=== PATIENT | female | born 1980 | race African-American/Black ===

== ENCOUNTER 2018-11-03 20:24 | Emergency (ER) | payer BC, MEDICAID, OTHER ==
[2018-11-03] MEDS ORDERED: Sodium Chloride 0.9% 10 ML Syringe FLUSH PRN (20:43)
--- NOTE | 2018-11-03 20:47 | EDM.PDOC ---
ED HPI GENERAL MEDICAL PROBLEM - General Stated Complaint: BLEEDING Time Seen by Provider: 11/03/18 20:47 Source of Information: Reports: Patient History Limitations: Reports: No Limitations - History of Present Illness INITIAL COMMENTS - FREE TEXT/NARRATIVE: PT presents c/o lower abd cramping and vaginal bleeding that started est 1900 tonight. Pt [id number] states she took a home test last month and was positive, [facility] on 09/27/18. Pt denies any sharp or tearing pain, mild cramping with vaginal bleeding, did note some clots were passed. ED ROS GENERAL - Review of Systems Review Of Systems: See Below Constitutional: Reports: No Symptoms HEENT: Reports: No Symptoms Respiratory: Reports: No Symptoms Cardiovascular: Reports: No Symptoms Endocrine: Reports: No Symptoms GI/Abdominal: Reports: Other (lower abd cramping. ) : Reports: Other (vaginal bleeding ) Skin: Reports: No Symptoms Neurological: Reports: No Symptoms Psychiatric: Reports: No Symptoms ED EXAM, GENERAL - Physical Exam Exam: See Below Exam Limited By: No Limitations General Appearance: Alert, WD/WN, No Apparent Distress Ears: Normal External Exam, Normal Canal Nose: Normal Inspection Throat/Mouth: Normal Inspection Head: Atraumatic, Normocephalic Neck: Normal Inspection Respiratory/Chest: No Respiratory Distress, Lungs Clear, Normal Breath Sounds, No Accessory Muscle Use, Chest Non-Tender Cardiovascular: Normal Peripheral Pulses GI/Abdominal: Normal Bowel Sounds, Soft, Tender, Other (lower abd tender / cramping ) Back Exam: Normal Inspection Extremities: Normal Inspection Neurological: Alert, Oriented Psychiatric: Normal Affect, Normal Mood Skin Exam: Warm, Dry, Intact Course - Orders/Labs/Meds Orders: Active Orders 24 hr Category Date Time Status HCG QUALITATIVE,URINE [URCHEM] Stat Lab 11/03/18 21:51 Ordered UA RFX TJ AND CULT IF INDIC [URIN] Stat Lab 11/03/18 21:51 Received Sodium Chloride 0.9% [Saline Flush] Med 11/03/18 20:43 Active 10 ml FLUSH ASDIRECTED PRN Peripheral IV Insertion Adult [OM.PC] Routine Oth 11/03/18 20:43 Ordered Medication Orders Sodium Chloride (Saline Flush) 10 ml FLUSH ASDIRECTED PRN PRN Reason: Keep Vein Open Labs: Laboratory Tests 11/03/18 11/03/18 Range/Units 20:56 20:56 WBC 5.4 (4.0-10.0) x10^3/uL RBC 4.62 (4.00-5.50) x10^6/uL Hgb 11.6 L (12.0-16.0) g/dL Hct 34.7 (33.0-47.0) % MCV 75.1 L (78.0-93.0) fL MCH 25.1 L (26.0-32.0) pg MCHC 33.4 (32.0-36.0) g/dL RDW Coeff of [place]iley 15.1 H (10.0-15.0) % Plt Count 217 (130-400) x10^3/uL Neut % (Auto) 62.2 (50.0-80.0) % Lymph % (Auto) 25.7 (25.0-50.0) % [place] % (Auto) 10.1 (2.0-11.0) % Eos % (Auto) 1.8 (0.0-4.0) % Baso % (Auto) 0.2 (0.2-1.2) % Sodium 137 (136-145) mmol/L Potassium 4.0 (3.5-5.1) mmol/L Chloride 102 (98-107) mmol/L Carbon Dioxide 27 (21-32) mmol/L Anion Gap 12.0 (10-20) mmol/L BUN 13 (7-18) mg/dL Creatinine 0.7 (0.55-1.02) mg/dL Est Cr Clr Drug Dosing TNP Estimated GFR (MDRD) > 60 Glucose 98 (74-106) mg/dL Calcium 8.7 (8.5-10.1) mg/dL Meds: Medications Generic Name Dose Route Start Last Admin Trade Name Freq PRN Reason Stop Dose Admin Sodium Chloride 10 ml 11/03/18 20:43 Saline Flush FLUSH ASDIRECTED PRN Keep Vein Open Departure - Departure Time of Disposition: 22:10 Disposition: Home, Self-Care 01 Clinical Impression: Miscarriage - Discharge Information - My Orders Last 24 Hours: My Active Orders 11/03/18 20:43 Sodium Chloride 0.9% [Saline Flush] 10 ml FLUSH ASDIRECTED PRN Peripheral IV Insertion Adult [OM.PC] Routine 11/03/18 21:51 HCG QUALITATIVE,URINE [URCHEM] Stat UA RFX TJ AND CULT IF INDIC [URIN] Stat - Assessment/Plan Last 24 Hours: My Active Orders 11/03/18 20:43 Sodium Chloride 0.9% [Saline Flush] 10 ml FLUSH ASDIRECTED PRN Peripheral IV Insertion Adult [OM.PC] Routine 11/03/18 21:51 HCG QUALITATIVE,URINE [URCHEM] Stat UA RFX TJ AND CULT IF INDIC [URIN] Stat
[2018-11-03 21:16] LABS: CHLORIDE,CL 102 mmol/L (98-107); SODIUM,NA 137 mmol/L (136-145)
== END 2018-11-03 22:25 | disposition home or self-care (01) ==
LOC: VM.ED 20:24
DX: O03.9 Complete or unspecified spontaneous abortion without complication (principal)
CPT/HCPCS: 80048; 81001; 81025; 85025; 99283-GF; 99284